=== PATIENT | female | born 1945 | race Caucasian/White ===

== ENCOUNTER 2023-11-04 13:00 | Outpatient (RCR) | payer MEDICARE, OTHER, SELFPAY | END 2024-03-03 23:59 | disposition home or self-care (01) | PROVIDERS: PCP Physician Assistant Medical; Visit Provider Physician Assistant Medical | DX: H81.11 Benign paroxysmal vertigo, right ear (principal); Z51.89 Encounter for other specified aftercare | CPT/HCPCS: 97112; 97162 ==

== ENCOUNTER 2024-08-20 14:45 | Outpatient (RCR) | payer MEDICARE, OTHER, SELFPAY | END 2024-12-18 23:59 | disposition home or self-care (01) | PROVIDERS: PCP Physician Assistant Medical; Visit Provider Physician Assistant | DX: H81.12 Benign paroxysmal vertigo, left ear (principal); Z51.89 Encounter for other specified aftercare | CPT/HCPCS: 97162; 97535 ==